=== PATIENT | female | born 1960 | race Native Hawaiian/Other Pacific Islander ===

== ENCOUNTER 2020-05-31 14:43 | Outpatient (CLI) | payer BC | END 2020-05-31 20:49 | disposition home or self-care (01) | LOC: RAD 14:43 | PROVIDERS: ATTEND Physician Assistant | DX: R06.02 Shortness of breath (principal) ==

== ENCOUNTER 2020-09-16 14:31 | Outpatient (CLI) | payer BC, OTHER | END 2020-09-16 20:40 | disposition home or self-care (01) | LOC: RAD 14:31 | PROVIDERS: ATTEND Physician Assistant | DX: R06.02 Shortness of breath (principal) ==

== ENCOUNTER 2020-09-21 14:37 | Outpatient (CLI) | payer BC | END 2020-09-21 19:52 | disposition home or self-care (01) | LOC: RAD 14:37 | PROVIDERS: ATTEND Physician Assistant | DX: Z86.16 Personal history of COVID-19 (principal) ==

== ENCOUNTER 2020-10-29 12:11 | Outpatient (CLI) | payer BC | END 2020-10-29 19:11 | disposition home or self-care (01) | LOC: RAD 12:11 | PROVIDERS: ATTEND Internal Medicine | DX: J18.9 Pneumonia, unspecified organism (principal); R05 Cough; R06.02 Shortness of breath ==

== ENCOUNTER 2021-06-21 11:16 | Outpatient (CLI) | payer BC | END 2021-06-21 19:29 | disposition home or self-care (01) | LOC: LABW 11:16 | PROVIDERS: ATTEND Nurse Practitioner | DX: R05.3 Chronic cough (principal) | CPT/HCPCS: 87070; 87205 ==

== ENCOUNTER 2021-07-25 13:07 | Outpatient (CLI) | payer BC ==
[2021-07-25 13:37] LABS: PLATELET COUNT 338 K/uL (152-353)
== END 2021-07-25 19:36 | disposition home or self-care (01) ==
LOC: CT 13:07
PROVIDERS: ATTEND Internal Medicine Pulmonary Disease
DX: R05.3 Chronic cough (principal)
CPT/HCPCS: 36415; 82784; 85027; 86003; 86701; 86702; 87389

== ENCOUNTER 2023-01-09 12:59 | Outpatient (CLI) | payer BC | END 2023-01-09 20:52 | disposition home or self-care (01) | LOC: RAD 12:59 | PROVIDERS: ATTEND Internal Medicine | DX: R05.3 Chronic cough (principal) ==